=== PATIENT | male | born 1940 | race Caucasian/White ===

== ENCOUNTER 2017-10-27 01:43 | Inpatient (IN) | payer OTHER, MEDICARE ==
[~2017-10-27] VITALS: Ht 180.3 cm; Wt 91.2 kg
[~2017-10-27 01:43] MED LIST: ALEVE220 M2 PO; AMLODIPINE BESY10 M1 PO; ATORVASTATIN CA40 M1 PO; EDARBI40 M1 PO; IRBESARTAN-HCT1 EAC1 PO; LUTEIN10 MG PO; OMEPRAZOLE20 M2 PO
[2017-10-27] MEDS ORDERED: EDARBI40 M1 PO (09:14)
--- NOTE | 2017-10-27 11:30 | Patient Discharge Instructions ---
Discharge Instructions General Discharge Information You were seen/treated for: RIGHT KNEE PAIN You had these procedures: RIGHT TOAL KNEE REPLACEMENT Watch for these problems: RIGHT KNEE DRAINAGE FROM WOUND FEVER OVER 101 UNABLE TO BEAR WEIGHT ON RIGHT LEG Call Surgeon to remove: [facility] (6 WEEK FOLLOW-UP), Other No bath, but you may shower: Yes Other wound care: DAILY DRY DRESSING CHANGE Diet Continue normal diet: Yes Activity Activity Self Limited: Yes Activity Limited to: Weight bear as tolerated Acute Coronary Syndrome Inclusion Criteria At DC or during hospital stay patient has or had the following: ACS DIAGNOSIS No Discharge Core Measures Meds if any: Prescribed or Continued at Discharge Meds if any: NOT Prescribed or Continued at Discharge Congestive Heart Failure Inclusion Criteria At DC or during hospital stay patient has or had the following: CHF DIAGNOSIS No Discharge Core Measures Meds if any: Prescribed or Continued at Discharge Meds if any: NOT Prescribed or Continued at Discharge Cerebrovascular accident Inclusion Criteria At DC or during hospital stay patient has or had the following: CVA/TIA Diagnosis No Discharge Core Measures Meds if any: Prescribed or Continued at Discharge Meds if any: NOT Prescribed or Continued at Discharge Venous thromboembolism Inclusion Criteria VTE Diagnosis No VTE Type NONE VTE Confirmed by (Test) NONE Discharge Core Measures - Per Current guidelines, there needs to be overlap - treatment for the first 5 days of Warfarin therapy. - If discharged on Warfarin prior to 5 days of - overlap therapy, the patient will need to be - assessed for post discharge needs including - *Post discharge parental anticoagulation - *Warfarin and/or parental anticoagulation education - *Follow up date to check INR post discharge At least 5 days overlap therapy as Inpatient No Meds if any: Prescribed or Continued at Discharge Note: Overlap Therapy is Warfarin and Anticoagulant Meds if any: NOT Prescribed or Continued at Discharge
--- NOTE | 2017-10-27 11:31 | Admission Core Measures ---
Acute Coronary Syndrome (CM) ACS Core Measures Acute Coronary Syndrome Diagnosis No Congestive Heart Failure (NEW) CHF Core Measures Congestive Heart Failure Diagnosis No Cerebrovascular Accident (NEW) CVA Core Measures CVA/TIA Diagnosis No Venous Thromboembolism VTE Core Gena (View Protocol) VTE Risk Factors Surgery No Mechanical VTE Prophylaxis d/t N/A MechProphylax Ordered No VTE Pharm Prophylaxis d/t NA PharmProphylax ordered Problem List As ranked by this Provider includes Assessment & Plan 1. Unilateral primary osteoarthritis, right knee HOME MEDS Home Med List Amlodipine Besylate 10 MG TABLET 1 TAB PO DAILY HYPERTENSION (Reported) Atorvastatin Calcium 40 MG TABLET 1 TAB PO DAILY HEART HEALTH (Reported) Azilsartan Medoxomil (Edarbi) 40 MG TABLET 1 TAB PO DAILY HYPERTENSION ( Reported) Irbesartan/Hydrochlorothiazide (Irbesartan-Hctz 300-12.5 MG Tb) 300 MG-12.5 MG TABLET 1 TAB PO DAILY HEART HEALTH (Reported) Lutein 10 MG TABLET 1 TAB PO DAILY SUPPLEMENT (Reported) Naproxen Sodium (Aleve) 220 MG TABLET 1 TAB PO DAILY PRN PAIN (Reported) Omeprazole 20 MG CAPSULE.DR 1 CAP PO DAILY GERD (Reported)
--- NOTE | 2017-10-27 11:35 | Surgical Discharge Summary ---
Visit Information Visit Dates Admission Date: 10/27/17 Discharge Date: 10/29/17 History of Present Illness Chief Complaint: RIGHT KNEE PAIN Surgical History Pertinent Surgical History: non-contributory Review of Systems: as per [facility] Hospital Course Course Attending Physician: Uzair Emerson MD Primary Care Physician: Amrit MOHAN,[place] [facility] Course: PT PRESENTED TO [facility] ON 10/27/17 FOR ELECTIVE RIGHT TOTAL KNEE ARTHROPLASTY WITH DR EMERSON. HE TOLERATED THE PROCEDURE WELL. POST-OPERATIVELY HE TOLERATED PO INTAKE, VOIDED SPONTANEOUSLY, HIS PAIN WAS CONTROLLED WITH ORAL MEDICATIONS, HE WAS AMBULATING WITH PHYSICAL THERAPY AND WAS CLEARED FOR DISCHARGE Allergies: Coded Allergies: prochlorperazine (From COMPAZINE) (UNKNOWN 10/27/17) COMPAZINE PER ONQ BALL ORDER OF 10/27/17 ([facility]) Disposition Summary Disposition Principal Diagnosis: RIGHT KNEE OA Additional Diagnosis: SP RIGHT TKA Discharge Disposition: home health services Discharge Instructions General Discharge Information Code Status: Full Code Patient's Diet: REGULAR Patient's Activity: WBAT Follow-Up Instructions/Appts: FU WITH DR EMERSON IN 6 WEEKS Medications at Discharge Discharge Medications: Continue taking these medications: Irbesartan/Hydrochlorothiazide (Irbesartan-Hctz 300-12.5 MG Tb) 300 MG-12.5 MG TABLET 1 Tablet ORAL DAILY Comments: Last Taken: 10/29/17 Time: 1000 AM Omeprazole (Omeprazole) 20 MG CAPSULE. 1 Capsule ORAL DAILY Comments: Last Taken: 10/29/17 Time: 1000 AM Lutein (Lutein) 10 MG TABLET 1 Tablet ORAL DAILY Comments: NOT GIVEN IN HOSPITAL Amlodipine Besylate (Amlodipine Besylate) 10 MG TABLET 1 Tablet ORAL DAILY Comments: Last Taken: 10/29/17 Time: 1000 AM Atorvastatin Calcium (Atorvastatin Calcium) 40 MG TABLET 1 Tablet ORAL DAILY Comments: Last Taken: 10/28/17 Time: 4:30 PM Azilsartan Medoxomil (Edarbi) 40 MG TABLET 1 Tablet ORAL DAILY Instructions: KARL STATES THAT pcp INSTRUCTED HIM TO TAKE MED X 1 ON DAY OF SX INSTEAD OF THE IBESARTAN Comments: NOT GIVEN IN HOSPITAL Naproxen Sodium (Aleve) 220 MG TABLET 1 Tablet ORAL DAILY as needed for PAIN Comments: NOT GIVEN IN HOSPITAL Azilsartan Medoxomil (Edarbi) 40 MG TABLET 1 ORAL Comments: patient instructed by to take x1 day of NOT GIVEN IN HOSPITAL Start taking the following new medications: Aspirin (Ecotrin*) 325 MG TABLET.DR 1 Tablet ORAL TWICE DAILY Qty = 60 No Refills Instructions: . Comments: Last Taken: 10/29/17 Time: 1000 AM Docusate Sodium (Colace) 100 MG CAPSULE 1 Capsule ORAL TWICE DAILY Qty = 14 No Refills Instructions: STOP TAKING IF YOU DEVELOP LOOSE STOOL/DIARRHEA. Comments: Last Taken: 10/29/17 Time: 1000 AM Hydromorphone HCl (Dilaudid) 2 MG TABLET 1-2 Tablet ORAL EVERY 4-6 HOURS NEEDED as needed for PAIN Qty = 36 No Refills Instructions: . Comments: Last Taken: 10/29/17 Time: 1010 AM Polyethylene Glycol 3350 (Miralax) 17 GRAM POWD.PACK 1 Packet ORAL DAILY Qty = 7 No Refills Instructions: dissolve in water. STOP TAKING IF YOU DEVELOP LOOSE STOOL/DIARRHEA. Comments: Last Taken: 10/29/17 Time: 1000 AM Copies To: Amrit MOHAN,Boone Finch; Keon MOHAN,Uzair
[2017-10-27] MEDS ORDERED: DILAUDID2 M1 PO (11:39)
[2017-10-27] MEDS ORDERED: COLACE100 M1 PO (11:39)
[2017-10-27] MEDS ORDERED: MIRALAX17 G1 PO (11:39)
[2017-10-27] MEDS ORDERED: ASPIRIN EC325 M2 PO (11:39)
[2017-10-27 15:00] VITALS: BP 138/84
--- NOTE | 2017-10-27 15:15 | Operative Report ---
Operative/Inv Procedure Report Surgery Date: 10/27/17 Name of Procedure: Right total knee replacement Pre-Operative Diagnosis: Primary right hip DJD Post-Operative Diagnosis: Same Estimated Blood Loss: 50ml to 100ml Surgeon/Orthopedic Podiatrist: Keon MOHAN,Uzair Currie Anesthesia: block Operative/Procedure Note Note: Description of Procedure: The patient was taken to the operating room and positively identified. After induction of spinal anesthesia and administration of appropriate pre-operative antibiotics, the patient was positioned supine on the operating room table and all bony prominences were well padded. A well-padded pneumatic tourniquet was placed on the right upper thigh. After performing a surgical timeout, the right lower extremity was prepped and draped in the usual sterile fashion. After exsanguination with Esmarch the tourniquet was inflated to 250mm of mercury. A standard medial parapatellar approach was made to the knee. This was carried down through skin and subcutaneous tissue to the level of the fascia. Meticulous hemostasis was maintained with Bovie electrocautery. The extensor mechanism and patellar retinaculum were opened sharply and the patella was everted. The infrapatellar fat was resected in order to improve exposure. Osteophytes were trimmed from the patella and femoral condyles and the patella was re-everted and tucked laterally. A medial release was performed and the cruciate ligaments were resected. The tibia was then subluxed anteriorly. Utilizing the appropriate extra-medullary guide, the proximal tibia was trimmed perpendicular to the long axis of the tibial shaft. Attention was then turned to the femur. After opening the medullary canal, the distal femoral cut was made in 6 degrees of valgus utilizing the appropriate intra-medullary guide. The extension gap was checked and found to be appropriate. The femur was then sized and the remainder of the femoral cuts were made with a size 6 4-in-1 femoral cutting guide. The flexion gap was checked and found to be symmetric and appropriate. The knee was then trialed with a size 6 femoral component, a size 6 tibial component and a size 13 mm polyethylene insert. The patella was trimmed to accept an A 35 patella. This yielded excellent range of motion, stability and patellar tracking. All trial components were removed and the knee was copiously irrigated with sterile saline. All components were cemented into place with Fior Simplex cement. All the components were of the [place] [employer] knee system of the above stated sizes. The knee was again irrigated after cementation. The extensor mechanism and patellar retinaculum were repaired using interrupted #1 vicryl suture. The skin was re-approximated with 2-0 vicryl and closed with marshal. A sterile dressing was applied, the tourniquet was deflated, the patient was awakened and taken to the recovery room in satisfactory condition.
--- NOTE | 2017-10-27 15:51 | PN- Orthopedic ---
Subjective Subjective: POST-OP NOTE Reports mild pain at this time. Tolerating ice chips. No nausea. Voided in pacu, but feel like he will be voiding again shortly. Not yet out of bed, but PT is going to get him up shortly. He denies dizziness. No shortness of breath. No chest pains. His goal is to go home in 2-3 days. Objective Vital Signs and I&Os Intake & Output 10/27 1600 10/27 0800 10/27 0000 10/26 1600 10/26 0800 10/26 0000 Intake Total Output Total Balance Patient 203 lb Weight pacu flowsheet reviewed. vss Physical Exam: General - alert & oriented x 3. comfortable. no acute distress. Lungs - clear bilaterally. no w/r/r. Cardiac - s1s2. reg. Abdomen - soft. nontender Extremities - warm bilaterally. right knee dressing c/d/i. on q in place. ice over knee. calves soft and nontender b/l. nvi. Current Medications: Current Medications Sig/Melani Start time Last Medication Dose Route Stop Time Status Admin Acetaminophen 1,000 MG Q6 PRN 10/27 1200 AC 10/27 IV 10/28 0601 1533 Acetaminophen 0 .STK-MED ONE 10/27 1006 DC PO Acetaminophen 975 MG ONE 10/27 0000 DC PO 10/27 2359 Amlodipine Besylate 10 MG DAILY 10/28 1000 DC PO Amlodipine Besylate 10 MG DAILY 10/28 1000 AC PO Aspirin 325 MG BID 10/27 2200 AC PO Atorvastatin Calcium 40 MG 1700 10/28 1700 DC PO Atorvastatin Calcium 40 MG 1700 10/28 1700 AC PO Cefazolin Sodium 2 GM IQ8 10/27 1600 AC N/A 1 UNIT IV 10/28 0029 Cefazolin Sodium 2,000 MG ONE 10/27 0000 DC IV 10/27 2359 Dextrose/Sodium 1,000 ML .[id number] 10/27 1530 AC 10/27 Chloride IV 1531 Docusate Sodium 100 MG BID 10/27 2200 AC PO Hydrochlorothiazide 12.5 MG DAILY 10/28 1000 AC PO Hydromorphone HCl 2 MG Q4P PRN 10/27 1530 AC PO Hydromorphone HCl 4 MG Q4P PRN 10/27 1530 AC PO Ketorolac 15 MG Q8 PRN 10/27 1130 AC 10/27 Tromethamine IV 1542 Losartan Potassium 50 MG DAILY 10/28 1000 DC PO Losartan Potassium 50 MG DAILY 10/28 1000 AC PO Morphine Sulfate 2 MG Q2P PRN 10/27 1530 AC IV Omeprazole 20 MG DAILY AC 10/28 0700 DC PO Omeprazole 20 MG DAILY AC 10/28 0700 AC PO Ondansetron HCl 4 MG Q6P PRN 10/27 1530 AC IV Oxycodone HCl 0 .STK-MED ONE 10/27 1005 DC PO Oxycodone HCl 10 MG ONE 10/27 0000 DC PO 10/27 2359 Polyethylene Glycol 17 GM DAILY 10/28 1000 AC PO Ropivacaine 500 ML ONCE ONE 10/27 1115 AC ON-Q Ball 1 BAG INJ 10/29 0454 Assessment/Plan Assessment/Plan This 77 year old male with hx htn and gerd, is now POD#0 s/p right total knee replacement for primary right hip DJD advance diet as tolerated pain medication as ordered PT eval in progress asa bid - dvt ppx tim-operative ancef x 2 doses home meds ordered bowel regime in place dressing change and removal of on-q on POD#2 f/u am labs d/c home in 2-3 days will d/w Core Measures Venous Thromboembolism VTE Risk Factors Surgery No Mechanical VTE Prophylaxis d/t N/A MechProphylax Ordered No VTE Pharm Prophylaxis d/t NA PharmProphylax ordered
[2017-10-27 17:00] VITALS: BP 144/75
[2017-10-27 19:00] VITALS: BP 114/67
[2017-10-27 21:00] VITALS: BP 126/79
[2017-10-28 01:00] VITALS: BP 109/68
[2017-10-28 05:05] VITALS: BP 114/72
[2017-10-28 08:40] LABS: ABSOLUTE BASOPHIL COUNT 0 /CUMM (0.0-0.2); ABSOLUTE EOSINOPHIL COUNT 0 /CUMM (0.0-0.7); ABSOLUTE GRANULOCYTE CT 10.6 /CUMM (1.4-6.5); ABSOLUTE LYMPH COUNT 0.7 /CUMM (1.2-3.4); ABSOLUTE MONOCYTE COUNT 0.8 /CUMM (0.10-0.60); BASOPHIL % 0 % (0.0-2.0); EOSINOPHIL % 0 % (0-5); HEMATOCRIT 29.1 % (42-52); MEAN CORPUSCULAR HGB 30.9 PG (27.0-31.0); MEAN CORPUSCULAR VOLUME 90.9 FL (80.0-94.0); MEAN PLATELET VOLUME 9.6 FL (7.4-10.4); RBC DISTRIBUTION WIDTH 13.5 % (11.5-14.5); WHITE BLOOD CELL COUNT 12.1 /CUMM (4.8-10.8)
[2017-10-28 09:00] VITALS: BP 108/68
--- NOTE | 2017-10-28 10:30 | PN- Orthopedic ---
Subjective Subjective: No acute overnight events. Patient's primary concern presently is insomnia. Denies chest pain, shortness of breath and difficulty breathing. Denies nausea and vomitting. Has been oob. Has ambulated. Objective Vital Signs and I&Os Vital Signs Date Time Temp Pulse Resp B/P B/P Pulse O2 O2 Flow FiO2 Mean Ox Delivery Rate 10/28 0935 87 108/68 10/28 0935 87 108/68 10/28 0900 97.5 87 18 108/68 96 Room Air Room Air 10/28 0505 97.9 85 20 114/72 93 Room Air 10/28 0100 97.8 82 20 109/68 92 Room Air 10/27 2100 97.4 85 20 126/79 95 Room Air 10/27 2034 Room Air Room Air 10/27 1900 97.4 91 20 114/67 93 Room Air 10/27 1700 97.4 95 20 144/75 93 Room Air 10/27 1500 97.3 77 20 138/84 99 Nasal 2.0L Cannula Intake & Output 10/28 1600 10/28 0800 10/28 0000 10/27 1600 10/27 0800 10/27 0000 Intake Total 780 1140 Output Total 1100 600 Balance -320 540 Intake, IV 300 400 Intake, Oral 480 740 Output, Urine 1100 600 Patient 201 lb Weight Weight Reported by Patient Measurement Method Physical Exam: General: Alert and oriented x3, no acute distress Cardiac: RRR, s1s2 Pulm: CTA bilaterally ABD: Non-tender, non-distended Extremties: Neurovascular status intact. Bilateral calves soft and non-tender. Dressing dry and intact. On Q intact without evidence of leak. Assessment/Plan Assessment/Plan This is a 77 year old male, POD 1, s/p R TKA -DC iv fluids -OOB, WBAT -Add melatonin 5mg tonight for sleep -Diet as toelrated -ASA 325 bid for dvt ppx. ALPS -Prilosec for gi ppx Will d/w Dr. Duarte Core Measures Venous Thromboembolism VTE Risk Factors Surgery No Mechanical VTE Prophylaxis d/t N/A MechProphylax Ordered No VTE Pharm Prophylaxis d/t NA PharmProphylax ordered
[2017-10-28 11:38] LABS: GRANULOCYTE % 87.1 % (42.2-75.2); PLATELET COUNT 199 /CUMM (130-400)
[2017-10-28 14:09] VITALS: BP 130/75
[2017-10-28 22:58] VITALS: BP 122/62
[2017-10-29 06:31] VITALS: BP 118/58
--- NOTE | 2017-10-29 07:33 | PN- Orthopedic ---
Subjective Subjective: pod#2 s/p right tka comfortable this am no major issues overnight ambulating well with pt tolerating diet Objective Vital Signs and I&Os Vital Signs Date Time Temp Pulse Resp B/P B/P Pulse O2 O2 Flow FiO2 Mean Ox Delivery Rate 10/29 0631 98.2 81 18 118/58 93 Room Air 10/28 2258 98.2 82 18 122/62 93 Room Air 10/28 1409 97.9 98 16 130/75 93 Room Air 10/28 0935 87 108/68 10/28 0935 87 108/68 10/28 0900 97.5 87 18 108/68 96 Room Air Room Air Intake & Output 10/29 0800 10/29 0000 10/28 1600 10/28 0800 10/28 0000 10/27 1600 Intake Total 240 952 267 6281 Output Total 300 526 753 8933 600 Balance -60 0 -300 -320 540 Intake, IV 300 400 Intake, Oral 240 400 480 740 Output, Urine 300 055 563 7810 600 Patient 201 lb Weight Weight Reported by Patient Measurement Method Physical Exam: cv: rrr lungs: clear abd: soft, +bs ext: drsg changed, wound c/d/i no calf tnederness bilat distalcms intact Assessment/Plan Assessment/Plan ortho stable plan cont oob with pt cont current plan home d/c planning Core Measures Venous Thromboembolism VTE Risk Factors Surgery No Mechanical VTE Prophylaxis d/t N/A MechProphylax Ordered No VTE Pharm Prophylaxis d/t NA PharmProphylax ordered
[2017-10-29 09:52] VITALS: BP 118/58
[2017-10-29] MEDS ORDERED: DILAUDID2 M1 PO (10:48)
[2017-10-29] MEDS ORDERED: ASPIRIN EC325 M2 PO (10:48)
[2017-10-29] MEDS ORDERED: MIRALAX17 G1 PO (10:48)
[2017-10-29] MEDS ORDERED: COLACE100 M1 PO (10:48)
== END 2017-10-29 12:05 | disposition home health service (06) | DRG 470 ==
LOC: SDA 01:43 → ENRESERV 14:05 → ENTRNSPT 14:28 → EDTRNSPTSTS 14:48 → EDTRNSPT 14:48 → 2NB 14:58 → CMPTRNSPT 15:11 → ENPENDDIS 10-29 10:51 → ENTRNSPT 10-29 11:41 → EDTRNSPT 10-29 12:00 → EDTRNSPTSTS 10-29 12:00 → 2NB 10-29 12:05 → CMPTRNSPT 10-29 12:09
PROVIDERS: Physician Assistant Surgical
PROC: 3E0T3BZ Introduction of Anesthetic Agent into Peripheral Nerves and Plexi, Percutaneous Approach (ICD-10-PCS; principal; 2017-10-27)
PROC: 0SRC0J9 Replacement of Right Knee Joint with Synthetic Substitute, Cemented, Open Approach (ICD-10-PCS; principal; 2017-10-27)
DX: M17.11 Unilateral primary osteoarthritis, right knee (principal); F41.9 Anxiety disorder, unspecified; K21.9 Gastro-esophageal reflux disease without esophagitis; I10 Essential (primary) hypertension; Z96.652 Presence of left artificial knee joint
CPT/HCPCS: 2NBP; 36592; 82436; 88305; 97110-GO; 97116-GO; 97161-GP; 97530-GO; C1713; J0131; J0690; J1100; J1885; J2795; J7042